=== PATIENT | female | born 1970 | race African-American/Black ===

== ENCOUNTER 2016-12-24 15:31 | Emergency (ER) | payer SELFPAY ==
--- NOTE | 2016-12-24 15:36 | ER Document Report ---
ED Medical Screen (RME) - General Stated Complaint: VOMITING Time seen by provider: 15:36 Mode of Arrival: Ambulatory Information source: Patient Notes: 46-year-old female with vomiting for 2 days she thinks it might be the Rifampin she started on Monday for a positive pedal PD skin test. She tried to go back to work today because she has been able to keep food down and does feel better but Swathi Smith wanted her to get a note for work. There is no diarrhea. She is a type II diabetic. Soreness in the epigastric area. TRAVEL OUTSIDE OF THE [place] IN LAST 30 DAYS: No - Related Data Allergies/Adverse Reactions: aspirin [Aspirin] Allergy (Verified 03/13/15 13:52) Shortness of Breath sulfamethoxazole [From Bactrim] Allergy (Verified 08/22/16 06:26) trimethoprim [From Bactrim] Allergy (Verified 08/22/16 06:26) Past Medical History - Past Medical History Cardiac Medical History: Reports: Hx Hypercholesterolemia, Hx Hypertension Pulmonary Medical History: Reports: Hx Asthma Endocrine Medical History: Reports: Hx Diabetes Mellitus Type 1, Hx Diabetes Mellitus Type 2 Psychiatric Medical History: Reports: Hx Depression Traumatic Medical History: Reports: Hx Fractures - LEFT TIBIAL PLATEAU FX TWO WEEKS AGO Past Surgical History: Reports: Hx Hysterectomy, Hx Oral Surgery - Pt has full dentures - Immunizations Hx Diphtheria, Pertussis, Tetanus Vaccination: Yes Physical Exam - Vital signs Vitals: Temp Pulse Resp BP Pulse Ox 98.6 F 106 H 16 138/76 H 96 12/24/16 15:36 12/24/16 15:36 12/24/16 15:36 12/24/16 15:36 12/24/16 15:36 Course - Vital Signs Vital signs: Temp Pulse Resp BP Pulse Ox 98.6 F 106 H 16 138/76 H 96 12/24/16 15:36 12/24/16 15:36 12/24/16 15:36 12/24/16 15:36 12/24/16 15:36
[2016-12-24 16:14] LABS: ABSOLUTE BASOPHILS # (AUTO) 0.1 10^3/uL (0.0-0.2); ABSOLUTE EOSINOPHILS # (AUTO) 0.1 10^3/uL (0.0-0.6); ABSOLUTE LYMPHOCYTES (AUTO) 2.3 10^3/uL (0.5-4.7); ABSOLUTE MONOCYTES (AUTO) 0.6 10^3/uL (0.1-1.4); ABSOLUTE NEUT (AUTO) 4.3 10^3/uL (1.7-8.2); BASOPHILS % (AUTO) 0.9 % (0-2); EOSINOPHILS % (AUTO) 1.3 % (0-6); HEMATOCRIT 41.7 % (36.0-47.0); HEMOGLOBIN 13.4 g/dL (12.0-15.5); HGB HCT DIFFERENCE -1.5; LYMPHOCYTES % (AUTO) 31.6 % (13-45); MEAN CORPUSCULAR HEMOGLOBIN 22.7 pg (27.0-33.4); MEAN CORPUSCULAR HGB CONC 32.1 g/dL (32.0-36.0); MEAN CORPUSCULAR VOLUME 71 fl (80-97); MONOCYTES % (AUTO) 8.4 % (3-13); RED CELL DISTRIBUTION WIDTH 14.6 % (11.5-14.0); SEGMENTED NEUTROPHILS % (AUTO) 57.8 % (42-78); WHITE BLOOD COUNT 7.4 10^3/uL (4.0-10.5)
[2016-12-24 16:17] LABS: APPEARANCE,URINE CLOUDY; BILIRUBIN,URINE SMALL (NEGATIVE); GLUCOSE, URINE >=500 mg/dL (NEGATIVE); KETONES,URINE TRACE mg/dL (NEGATIVE); LEUKOCYTE ESTERASE,URINE SMALL (NEGATIVE); NITRITE,URINE NEGATIVE (NEGATIVE); PROTEIN,URINE 100 mg/dL (NEGATIVE); URINE SPECIFIC GRAVITY 1.028
[2016-12-24 16:38] LABS: ALANINE AMINOTRANSFERASE 27 U/L (9-52); ALBUMIN 3.8 g/dL (3.5-5.0); ALKALINE PHOSPHATASE 140 U/L (38-126); ANION GAP 15 (5-19); ASPARTATE AMINO TRANSFERASE 17 U/L (14-36); BILIRUBIN,TOTAL 0.6 mg/dL (0.2-1.3); BLOOD UREA NITROGEN 13 mg/dL (7-20); CALCIUM 9.5 mg/dL (8.4-10.2); CARBON DIOXIDE 28 mmol/L (22-30); CHLORIDE 94 mmol/L (98-107); CREATININE RESULT 1.16 mg/dL (0.52-1.25); GLUCOSE 379 mg/dL (75-110); LIPASE 97.1 U/L (23-300); SODIUM 137.2 mmol/L (137-145); TOTAL PROTEIN 7.9 g/dL (6.3-8.2)
[2016-12-24] MEDS ORDERED: CEPHALEXIN 500 MG CAPSULE PO ONE (16:51)
--- NOTE | 2016-12-24 16:56 | ER Document Report ---
ED GI/ - General Mode of Arrival: Ambulatory Information source: Patient TRAVEL OUTSIDE OF THE [place] IN LAST 30 DAYS: No - HPI Patient complains to provider of: Abdominal pain, Vomiting Onset: Other - 2 days ago Associated symptoms: Other - see above <SUSANA WANG - Last Filed: 12/24/16 17:21> <JIN AUGUSTIN - Last Filed: 12/24/16 17:58> - General Chief Complaint: Vomiting Stated Complaint: VOMITING Notes: 46 year old female with history of diabetes presents to the ED complaining of nausea and vomiting for the past 2 days. Patient states that she had some mild abdominal pain earlier, but admits that all symptoms have gotten better since earlier this morning. Nursing assessment states that the patient vomited once this morning, proceeded to eat a meal, and has not had another episode of vomiting since. Patient denies diarrhea or fever. Patient is additionally complaining of mild dysuria, stating that the "last few drops" feels like "something is being pulled." Patient is currently on 500 mg Metformin BID ( taking as prescribed for the past 4 years) and was started on Rifampin 3 days ago. Patient does not have a primary care provider currently, but is looking for one. (SUSANA WANG) - Related Data Allergies/Adverse Reactions: aspirin [Aspirin] Allergy (Verified 03/13/15 13:52) Shortness of Breath sulfamethoxazole [From Bactrim] Allergy (Verified 08/22/16 06:26) trimethoprim [From Bactrim] Allergy (Verified 08/22/16 06:26) Past Medical History - General Information source: Patient - Social History Smoking Status: Current Every Day Smoker Cigarette use (# per day): Yes - 1 pack per 3 days Family History: CAD, CVA, DM - Past Medical History Cardiac Medical History: Reports: Hx Hypercholesterolemia, Hx Hypertension Pulmonary Medical History: Reports: Hx Asthma Endocrine Medical History: Reports: Hx Diabetes Mellitus Type 1, Hx Diabetes Mellitus Type 2 Renal/ Medical History: Denies: Hx Peritoneal Dialysis Psychiatric Medical History: Reports: Hx Depression Traumatic Medical History: Reports: Hx Fractures - LEFT TIBIAL PLATEAU FX in May 2014 Past Surgical History: Reports: Hx Hysterectomy, Hx Oral Surgery - Pt has full dentures - Immunizations Hx Diphtheria, Pertussis, Tetanus Vaccination: Yes Hx Pneumococcal Vaccination: 09/13/14 <SUSANA WANG - Last Filed: 12/24/16 17:21> Review of Systems - Review of Systems Constitutional: No symptoms reported EENT: No symptoms reported Cardiovascular: No symptoms reported Respiratory: No symptoms reported Gastrointestinal: See HPI, Abdominal pain, Nausea, Vomiting Genitourinary: See HPI, Dysuria Female Genitourinary: No symptoms reported Musculoskeletal: No symptoms reported Skin: No symptoms reported Hematologic/Lymphatic: No symptoms reported Neurological/Psychological: No symptoms reported -: Yes All other systems reviewed and negative <SUSANA WANG - Last Filed: 12/24/16 17:21> Physical Exam - General General appearance: Alert In distress: None - HEENT Head: Normocephalic, Atraumatic Eyes: Normal Extraocular movements intact: Yes Pupils: PERRL - Respiratory Respiratory status: No respiratory distress Breath sounds: Normal - Cardiovascular Rhythm: Regular Heart sounds: Normal auscultation - Abdominal Inspection: Normal Distension: No distension Bowel sounds: Normal Tenderness: Nontender - Back Back: Normal - Extremities General upper extremity: Normal inspection, Normal ROM General lower extremity: Normal inspection, Normal ROM - Neurological Neuro grossly intact: Yes - Psychological Associated symptoms: Normal affect, Normal mood - Skin Skin Temperature: Warm Skin Moisture: Dry Skin Color: Normal <SUSANA WANG - Last Filed: 12/24/16 17:21> <JIN AUGUSTIN - Last Filed: 12/24/16 17:58> - Vital signs Vitals: Temp Pulse Resp BP Pulse Ox 98.6 F 106 H 16 138/76 H 96 12/24/16 15:36 12/24/16 15:36 12/24/16 15:36 12/24/16 15:36 12/24/16 15:36 (SUSANA WANG) (JIN AUGUSTIN) Course - Laboratory Result Diagrams: 12/24/16 15:45 12/24/16 15:45 <SUSANA WANG - Last Filed: 12/24/16 17:21> - Laboratory Result Diagrams: 12/24/16 15:45 12/24/16 15:45 <JIN AUGUSTIN - Last Filed: 12/24/16 17:58> - Vital Signs Vital signs: Temp Pulse Resp BP Pulse Ox 98.6 F 106 H 16 138/76 H 96 12/24/16 15:37 12/24/16 15:37 12/24/16 15:37 12/24/16 15:37 12/24/16 15:37 (SUSANA WANG) (JIN AUGUSTIN) - Laboratory Laboratory results interpreted by me: 12/24/16 12/24/16 12/24/16 15:45 15:45 15:45 RBC 5.90 H MCV 71 L MCH 22.7 L RDW 14.6 H Chloride 94 L Est GFR (Non-Af Amer) 50 L Glucose 379 H Hemoglobin A1c % Alkaline Phosphatase 140 H Urine Protein 100 H Urine Glucose (UA) >=500 H Urine Ketones TRACE H Urine Bilirubin SMALL H Urine Urobilinogen 2.0 H Ur Leukocyte Esterase SMALL H 12/24/16 15:45 RBC MCV MCH RDW Chloride Est GFR (Non-Af Amer) Glucose Hemoglobin A1c % 11.4 H Alkaline Phosphatase Urine Protein Urine Glucose (UA) Urine Ketones Urine Bilirubin Urine Urobilinogen Ur Leukocyte Esterase (SUSANA WANG) (JIN AUGUSTIN) Discharge <SUSANA WANG - Last Filed: 12/24/16 17:21> <JIN AUGUSTIN - Last Filed: 12/24/16 17:58> - Discharge Clinical Impression: Hyperglycemia due to type 2 diabetes mellitus Qualifiers: Diabetes mellitus half-way insulin use: without long term acute care registered nurse use Qualified Code(s ): E11.65 - Type 2 diabetes mellitus with hyperglycemia Urinary tract infection Qualifiers: Urinary tract infection type: site unspecified Hematuria presence: with hematuria Qualified Code(s): N39.0 - Urinary tract infection, site not specified ; R31.9 - Hematuria, unspecified Nausea and vomiting Qualifiers: Vomiting type: unspecified Vomiting Intractability: non-intractable Qualified Code(s): R11.2 - Nausea with vomiting, unspecified Condition: Stable Disposition: HOME, SELF-CARE Additional Instructions: Hyperglycemia (High Blood Sugar): You have an abnormally high blood sugar. It's very important that you take the medication and to follow-up with a local medical doctor, to see if the blood sugar returns to normal levels. Uncontrolled high blood sugar leads to early heart disease, strokes, nerve damage, eye damage, and kidney damage. Call the physician if there is faintness, excess sleepiness, or very rapid breathing. Urinary Tract Infection: Your evaluation indicates that you have a urinary tract infection. This is due to germs growing in the bladder. This is a common problem. This infection usually responds quickly to antibiotics. Your antibiotic should be taken exactly as prescribed. Drink plenty of fluids -- three to four quarts a day. Occasionally, a bladder anesthetic will be prescribed to help stop the feeling of urgency until the antibiotic has a chance to clear the infection. This may cause your urine to be dark orange. Certain urine infections require a culture. If the doctor obtained a culture, the results will be back in two days. You should call to see if a change in treatment is needed. A repeat urinalysis after you finish treatment is often recommended. The physician will let you know if further testing is required. Call the doctor if you develop fever, chills, flank pain, inability to urinate, or blood in the urine. TAKE THE MEDICATIONS PRESCRIBED. DRINK PLENTY OF WATER TODAY. CHECK YOUR BLOOD SUGARS. FOLLOW UP WITH A LOCAL MEDICAL DOCTOR TO MANAGE YOUR DIABETES. RETURN TO THE EMERGENCY ROOM IF ANY NEW OR WORSENING SYMPTOMS. Prescriptions: Cephalexin Monohydrate [Keflex 500 mg Capsule] 500 mg PO BID #10 capsule Glipizide [Glucotrol 5 mg Tablet] 5 mg PO DAILY #30 tablet Forms: Return to Work Scribe Attestation: 12/24/16 17:58 I personally performed the services described in the documentation, reviewed and edited the documentation which was dictated to the scribe in my presence, and it accurately records my words and actions. (JIN AUGUSTIN) Scribe Documentation - Scribe Written by Keli:: Keli Raymundo, 12/24/2016 [id number] acting as scribe for :: Vidal <SUSANA WANG - Last Filed: 12/24/16 17:21>
[2016-12-24 18:09] VITALS: BP 146/93
== END 2016-12-24 18:09 | disposition home or self-care (01) ==
LOC: ER 15:31
DX: E11.65 Type 2 diabetes mellitus with hyperglycemia (principal); N39.0 Urinary tract infection, site not specified; R11.2 Nausea with vomiting, unspecified; R10.9 Unspecified abdominal pain; F17.210 Nicotine dependence, cigarettes, uncomplicated; I10 Essential (primary) hypertension; E78.00 Pure hypercholesterolemia, unspecified; Z88.6 Allergy status to analgesic agent; Z88.3 Allergy status to other anti-infective agents; Z90.710 Acquired absence of both cervix and uterus
CPT/HCPCS: 36415; 80053; 81001; 83036; 83690; 85025; 87086; 99284

== ENCOUNTER → 2017-07-11 | Outpatient (CLI) | payer OTHER ==
[2017-07-11 11:26] LABS: ALANINE AMINOTRANSFERASE 23 U/L (9-52); ALBUMIN 4.2 g/dL (3.5-5.0); ALKALINE PHOSPHATASE 127 U/L (38-126); ANION GAP 9 (5-19); ASPARTATE AMINO TRANSFERASE 19 U/L (14-36); BILIRUBIN,DIRECT 0.4 mg/dL (0.0-0.4); BILIRUBIN,TOTAL 0.4 mg/dL (0.2-1.3); BLOOD UREA NITROGEN 23 mg/dL (7-20); CALCIUM 9.9 mg/dL (8.4-10.2); CARBON DIOXIDE 28 mmol/L (22-30); CHLORIDE 104 mmol/L (98-107); CHOLESTEROL 201.19 mg/dL (0-200); CREATININE RESULT 0.94 mg/dL (0.52-1.25); Direct HDL 84 mg/dL (>40); GLUCOSE 146 mg/dL (75-110); POTASSIUM 5.1 mmol/L (3.6-5.0); SODIUM 141.3 mmol/L (137-145); TOTAL PROTEIN 7.9 g/dL (6.3-8.2); TRIGLYCERIDES 97 mg/dL (<150)
[2017-07-11 11:42] LABS: DIRECT LDL 103 mg/dL (<100)
== END ==
LOC: CCC 09:58
DX: E11.65 Type 2 diabetes mellitus with hyperglycemia (principal)
CPT/HCPCS: 36415; 80053; 80061; 83036; 85652; 86140

== ENCOUNTER 2018-09-27 16:23 | Emergency (ER) | payer SELFPAY ==
[2018-09-27] MEDS ORDERED: ONDANSETRON HCL INJ/PF 4 MG/2 ML SDV IV ONE (17:31)
[2018-09-27] MEDS ORDERED: NORMAL SALINE 1000 ML 1,000 ML IV ONE ×2 (17:31→21:02)
--- NOTE | 2018-09-27 17:34 | ER Document Report ---
ED Medical Screen (RME) - General Chief Complaint: General Weakness Stated Complaint: WEAKNESS/VOMITING Time Seen by Provider: 09/27/18 17:31 Notes: 48 years old female history of diabetes hypertension smoking, presents today with with generalized body aches and pain feverish nausea vomited many times. No diarrhea. No dysuria frequency or urgency. Coughing on and off but she is a smoker she says. Examination appears weak and dehydrated TRAVEL OUTSIDE OF THE [place] IN LAST 30 DAYS: No - Related Data Allergies/Adverse Reactions: aspirin [Aspirin] Allergy (Verified 09/27/18 16:25) Shortness of Breath sulfamethoxazole [From Bactrim] Allergy (Verified 09/27/18 16:25) trimethoprim [From Bactrim] Allergy (Verified 09/27/18 16:25) Past Medical History - Social History Chew tobacco use (# tins/day): No Frequency of alcohol use: Heavy Drug Abuse: None - Past Medical History Cardiac Medical History: Reports: Hx Hypercholesterolemia, Hx Hypertension Pulmonary Medical History: Reports: Hx Asthma Endocrine Medical History: Reports: Hx Diabetes Mellitus Type 1, Hx Diabetes Mellitus Type 2 Renal/ Medical History: Denies: Hx Peritoneal Dialysis Psychiatric Medical History: Reports: Hx Depression Traumatic Medical History: Reports: Hx Fractures - LEFT TIBIAL PLATEAU FX in May 2014 Past Surgical History: Reports: Hx Hysterectomy, Hx Oral Surgery - Pt has full dentures - Immunizations Hx Diphtheria, Pertussis, Tetanus Vaccination: Yes Physical Exam - Vital signs Vitals: Temp Pulse Resp BP Pulse Ox 99.0 F 112 H 20 150/93 H 93 09/27/18 16:57 09/27/18 16:57 09/27/18 16:57 09/27/18 16:57 09/27/18 16:57 Course - Vital Signs Vital signs: Temp Pulse Resp BP Pulse Ox 99.0 F 112 H 20 150/93 H 93 09/27/18 16:57 09/27/18 16:57 09/27/18 16:57 09/27/18 16:57 09/27/18 16:57 Doctor's Discharge - Discharge Referrals: [facility] [Primary Care Provider] - Follow up as needed
--- NOTE | 2018-09-27 18:19 | RADIOLOGY REPORT (SQ) ---
EXAM DESCRIPTION: ACUTE ABDOMEN SERIES COMPLETED DATE/TIME: 09/27/2018 6:01 pm REASON FOR STUDY: Acute abdominal pain COMPARISON: None. NUMBER OF VIEWS: One view. TECHNIQUE: Supine radiographic image of the abdomen acquired. LIMITATIONS: None. FINDINGS: BOWEL GAS PATTERN: Non-obstructive bowel gas pattern. No dilated loops. CALCIFICATIONS: No suspicious calcifications. SOFT TISSUES: No gross mass or suggestion of organomegaly. HARDWARE: None in the abdomen. BONES: No acute fracture. No worrisome bone lesions. OTHER: No other significant finding. IMPRESSION: NO RADIOGRAPHIC EVIDENCE FOR ACUTE ABDOMINAL DISEASE. TECHNICAL DOCUMENTATION: JOB ID: [id number] 2010 [employer]- All Rights Reserved Reading location - IP/workstation name: [email or web address]
[2018-09-27 18:35] LABS: ABSOLUTE BASOPHILS # (AUTO) 0.1 10^3/uL (0.0-0.2); ABSOLUTE EOSINOPHILS # (AUTO) 0.1 10^3/uL (0.0-0.6); ABSOLUTE LYMPHOCYTES (AUTO) 1.3 10^3/uL (0.5-4.7); ABSOLUTE MONOCYTES (AUTO) 0.8 10^3/uL (0.1-1.4); ABSOLUTE NEUT (AUTO) 6.2 10^3/uL (1.7-8.2); BASOPHILS % (AUTO) 0.8 % (0-2); EOSINOPHILS % (AUTO) 0.6 % (0-6); HEMATOCRIT 44.2 % (36.0-47.0); HEMOGLOBIN 14.4 g/dL (12.0-15.5); MEAN CORPUSCULAR HEMOGLOBIN 23.7 pg (27.0-33.4); MEAN CORPUSCULAR HGB CONC 32.7 g/dL (32.0-36.0); MEAN CORPUSCULAR VOLUME 73 fl (80-97); MONOCYTES % (AUTO) 9.6 % (3-13); PLATELET COUNT 275 10^3/uL (150-450); RED BLOOD COUNT 6.09 10^6/uL (3.72-5.28); RED CELL DISTRIBUTION WIDTH 14.2 % (11.5-14.0); TOTAL CELLS COUNTED % (AUTO) 100 %; WHITE BLOOD COUNT 8.4 10^3/uL (4.0-10.5)
--- NOTE | 2018-09-27 18:51 | ER Document Report ---
ED General - General Chief Complaint: General Weakness Stated Complaint: WEAKNESS/VOMITING Time Seen by Provider: 09/27/18 17:31 Mode of Arrival: Ambulatory Information source: Patient Notes: 48-year-old female with a history of diabetes, hypertension presents emergency department with generalized weakness, myalgias, nausea, vomiting, dysuria, increased urgency, increased frequency. No abdominal pain, chest pain, shortness of breath, fever, chills. Patient denies any alleviating or exacerbating factors. TRAVEL OUTSIDE OF THE [place] IN LAST 30 DAYS: No - HPI Onset: Yesterday Onset/Duration: Gradual Quality of pain: Achy Severity: Mild Associated symptoms: Diarrhea, Nausea, Vomiting Exacerbated by: Denies Relieved by: Denies Similar symptoms previously: No Recently seen / treated by doctor: No - Related Data Allergies/Adverse Reactions: aspirin [Aspirin] Allergy (Verified 09/27/18 16:25) Shortness of Breath sulfamethoxazole [From Bactrim] Allergy (Verified 09/27/18 16:25) trimethoprim [From Bactrim] Allergy (Verified 09/27/18 16:25) Past Medical History - General Information source: Patient - Social History Smoking Status: Current Every Day Smoker Chew tobacco use (# tins/day): No Frequency of alcohol use: Heavy Drug Abuse: None Family History: CAD, CVA, DM Patient has suicidal ideation: No Patient has homicidal ideation: No - Past Medical History Cardiac Medical History: Reports: Hx Hypercholesterolemia, Hx Hypertension Pulmonary Medical History: Reports: Hx Asthma Endocrine Medical History: Reports: Hx Diabetes Mellitus Type 1, Hx Diabetes Mellitus Type 2 Renal/ Medical History: Denies: Hx Peritoneal Dialysis Psychiatric Medical History: Reports: Hx Depression Traumatic Medical History: Reports: Hx Fractures - LEFT TIBIAL PLATEAU FX in May 2014 Past Surgical History: Reports: Hx Hysterectomy, Hx Oral Surgery - Pt has full dentures - Immunizations Hx Diphtheria, Pertussis, Tetanus Vaccination: Yes Hx Pneumococcal Vaccination: 09/13/14 Review of Systems - Review of Systems Constitutional: Malaise, Weakness EENT: No symptoms reported Cardiovascular: No symptoms reported Respiratory: No symptoms reported Gastrointestinal: Diarrhea, Nausea, Vomiting Genitourinary: Dysuria, Frequency, Urgency Female Genitourinary: No symptoms reported Musculoskeletal: No symptoms reported Skin: No symptoms reported Hematologic/Lymphatic: No symptoms reported Neurological/Psychological: No symptoms reported -: Yes All other systems reviewed and negative Physical Exam - Vital signs Vitals: Temp Pulse Resp BP Pulse Ox 99.0 F 112 H 20 150/93 H 93 09/27/18 16:57 09/27/18 16:57 09/27/18 16:57 09/27/18 16:57 09/27/18 16:57 - Notes Notes: PHYSICAL EXAMINATION: GENERAL: Well-appearing, well-nourished and in no acute distress. HEAD: Atraumatic, normocephalic. EYES: Pupils equal round and reactive to light, extraocular movements intact, conjunctiva are normal. ENT: Nares patent, oropharynx clear without exudates. Moist mucous membranes. NECK: Normal range of motion, supple without lymphadenopathy LUNGS: Breath sounds clear to auscultation bilaterally and equal. No wheezes rales or rhonchi. HEART: Regular rate and rhythm without murmurs ABDOMEN: Soft, nontender, nondistended abdomen. No guarding, no rebound. No masses appreciated. Female : deferred Musculoskeletal: Normal range of motion, no pitting or edema. No cyanosis. NEUROLOGICAL: Cranial nerves grossly intact. Normal speech, normal gait. Normal sensory, motor exams PSYCH: Normal mood, normal affect. SKIN: Warm, Dry, normal turgor, no rashes or lesions noted. Course - Re-evaluation Re-evalutation: 09/27/18 22:38 Labs and imaging ordered. Patient given fluids, morphine, Zofran. Urinalysis shows signs of infection. XR abd/pel is normal. Patient was given a gram of Rocephin. Abdominal exam is benign. No abdominal tenderness to palpation. Normal active bowel sounds. On reevaluation, patient states that she is feeling much better. Patient is agreeable with discharge home. I will discharge the patient with a prescription for levofloxacin, zofran, and norco. Patient instructed to follow up with her primary care physician this week, to take medication as directed, and to return for worsening symptoms. - Vital Signs Vital signs: Temp Pulse Resp BP Pulse Ox 98.7 F 112 H 19 143/124 H 93 09/27/18 20:11 09/27/18 16:57 09/27/18 20:31 09/27/18 20:31 09/27/18 20:31 - Laboratory Result Diagrams: 09/27/18 18:20 09/27/18 19:55 Laboratory results interpreted by me: 09/27/18 09/27/18 09/27/18 18:20 19:00 19:55 RBC 6.09 H MCV 73 L MCH 23.7 L RDW 14.2 H Glucose 256 H AST 13 L Alkaline Phosphatase 150 H Lipase 513.6 H Urine Protein 100 H Urine Glucose (UA) >=500 H Urine Ketones 20 H Urine Blood LARGE H Ur Leukocyte Esterase LARGE H Discharge - Discharge Clinical Impression: Urinary tract infection Qualifiers: Urinary tract infection type: site unspecified Hematuria presence: without hematuria Qualified Code(s): N39.0 - Urinary tract infection, site not specified Condition: Good Disposition: HOME, SELF-CARE Instructions: Urinary Tract Infection ([facility]) Prescriptions: Hydrocodone/Acetaminophen [[place]co 5-325 mg Tablet] 1 tab PO Q4 #10 tablet Levofloxacin [Levaquin 750 mg Tablet] 750 mg PO DAILY #5 tablet Promethazine HCl [Phenergan 25 mg Tablet] 1 tab PO Q6H PRN #15 tablet PRN Reason: Referrals: [facility] [Primary Care Provider] - Follow up as needed
[2018-09-27 19:26] LABS: APPEARANCE,URINE TURBID; BILIRUBIN,URINE NEGATIVE (NEGATIVE); COLOR,URINE YELLOW; GLUCOSE, URINE >=500 mg/dL (NEGATIVE); KETONES,URINE 20 mg/dL (NEGATIVE); LEUKOCYTE ESTERASE,URINE LARGE (NEGATIVE); NITRITE,URINE NEGATIVE (NEGATIVE); PROTEIN,URINE 100 mg/dL (NEGATIVE); URINE SPECIFIC GRAVITY 1.013; UROBILINOGEN,URINE NEGATIVE mg/dL (<2.0)
[2018-09-27] MEDS ORDERED: CEFTRIAXONE INJ 1000 MG VIAL IV ONE (19:51)
[2018-09-27] MEDS ORDERED: PROMETHAZINE HCL INJ 25 MG/1 ML VIAL IV ONE (20:23)
[2018-09-27 20:33] LABS: ALANINE AMINOTRANSFERASE 15 U/L (9-52); ALBUMIN 3.9 g/dL (3.5-5.0); ALKALINE PHOSPHATASE 150 U/L (38-126); ANION GAP 13 (5-19); ASPARTATE AMINO TRANSFERASE 13 U/L (14-36); BILIRUBIN,DIRECT 0.4 mg/dL (0.0-0.4); BILIRUBIN,TOTAL 0.5 mg/dL (0.2-1.3); BLOOD UREA NITROGEN 17 mg/dL (7-20); CALCIUM 9.3 mg/dL (8.4-10.2); CARBON DIOXIDE 29 mmol/L (22-30); CHLORIDE 99 mmol/L (98-107); GLUCOSE 256 mg/dL (75-110); LIPASE 513.6 U/L (23-300); POTASSIUM 4.6 mmol/L (3.6-5.0); SODIUM 141.2 mmol/L (137-145); TOTAL PROTEIN 7.8 g/dL (6.3-8.2)
[2018-09-27] MEDS ORDERED: MORPHINE SULFATE 10 MG/ML INJ IV ONE (21:02)
[2018-09-27 23:55] VITALS: BP 171/83
== END 2018-09-27 23:55 | disposition home or self-care (01) ==
LOC: ER 16:23
DX: N39.0 Urinary tract infection, site not specified (principal); R53.1 Weakness; R11.2 Nausea with vomiting, unspecified; R19.7 Diarrhea, unspecified; M79.10 Myalgia, unspecified site; F17.200 Nicotine dependence, unspecified, uncomplicated; E78.00 Pure hypercholesterolemia, unspecified; I10 Essential (primary) hypertension; E11.9 Type 2 diabetes mellitus without complications; Z88.6 Allergy status to analgesic agent; Z88.3 Allergy status to other anti-infective agents; Z90.710 Acquired absence of both cervix and uterus
CPT/HCPCS: 36415; 87040; 87086; 83690; 85025; 87088; 80053; 81001; 87186; 74022; J2270; J2550; J0696; J2405; J7030; 96361; 96365; 96375; 99285

== ENCOUNTER 2018-09-28 05:12 | Emergency (ER) | payer SELFPAY ==
--- NOTE | 2018-09-28 05:31 | ER Document Report ---
ED Medical Screen (RME) - General Chief Complaint: Dizziness Stated Complaint: NAUSEA,DIZZINESS Time Seen by Provider: 09/28/18 05:29 Notes: Patient is evaluated as a rapid medical eval. She was just discharged after being seen for myalgias and hypertension, was diagnosed with UTI and discharged with antibiotics after receiving IV antibiotics. Her labs were normal. She states she still feels "bad" and complains of generalized weakness myalgias headaches nausea abdominal pain but denies focal weakness numbness tingling. I was contacted by nursing to rule out acute stroke because they thought she had a facial droop. I examined the patient. She is in mild distress and appears very weak, but responds to my commands and sits up straight to do the neuro exam. Initially when I asked her to smile her right face looks like it is not coming up all the way but when she makes a full effort, there is no delayed upstroke, flattened nasolabial fold or any facial asymmetry at all. The remainder of her cranial nerve exam is normal. She has no pronator drift. Nursing tells me that her pressure is quite high. We will plug her in, get basic labs, and go from there. TRAVEL OUTSIDE OF THE [place] IN LAST 30 DAYS: No - Related Data Allergies/Adverse Reactions: aspirin [Aspirin] Allergy (Verified 09/27/18 16:25) Shortness of Breath sulfamethoxazole [From Bactrim] Allergy (Verified 09/27/18 16:25) trimethoprim [From Bactrim] Allergy (Verified 09/27/18 16:25) Past Medical History - Past Medical History Cardiac Medical History: Reports: Hx Hypercholesterolemia, Hx Hypertension Pulmonary Medical History: Reports: Hx Asthma Endocrine Medical History: Reports: Hx Diabetes Mellitus Type 1, Hx Diabetes Mellitus Type 2 Renal/ Medical History: Denies: Hx Peritoneal Dialysis Psychiatric Medical History: Reports: Hx Depression Traumatic Medical History: Reports: Hx Fractures - LEFT TIBIAL PLATEAU FX in May 2014 Past Surgical History: Reports: Hx Hysterectomy, Hx Oral Surgery - Pt has full dentures - Immunizations Hx Diphtheria, Pertussis, Tetanus Vaccination: Yes Physical Exam - Vital signs Vitals: Temp Pulse Resp BP 98.6 F 101 H 20 201/111 H 09/28/18 05:17 09/28/18 05:17 09/28/18 05:17 09/28/18 05:17 Course - Vital Signs Vital signs: Temp Pulse Resp BP Pulse Ox 98.6 F 101 H 20 201/111 H 09/28/18 05:17 09/28/18 05:17 09/28/18 05:17 09/28/18 05:17 Doctor's Discharge - Discharge Referrals: [facility] [Primary Care Provider] - Follow up as needed
[2018-09-28 05:53] LABS: ABSOLUTE BASOPHILS # (AUTO) 0.1 10^3/uL (0.0-0.2); ABSOLUTE MONOCYTES (AUTO) 0.4 10^3/uL (0.1-1.4); ABSOLUTE NEUT (AUTO) 7.6 10^3/uL (1.7-8.2); BASOPHILS % (AUTO) 0.9 % (0-2); EOSINOPHILS % (AUTO) 0.1 % (0-6); HEMATOCRIT 42.1 % (36.0-47.0); HEMOGLOBIN 13.9 g/dL (12.0-15.5); LYMPHOCYTES % (AUTO) 10.7 % (13-45); MEAN CORPUSCULAR HEMOGLOBIN 23.6 pg (27.0-33.4); MEAN CORPUSCULAR HGB CONC 32.9 g/dL (32.0-36.0); MEAN CORPUSCULAR VOLUME 72 fl (80-97); MONOCYTES % (AUTO) 4.7 % (3-13); PLATELET COUNT 303 10^3/uL (150-450); RED BLOOD COUNT 5.87 10^6/uL (3.72-5.28); RED CELL DISTRIBUTION WIDTH 14.3 % (11.5-14.0); SEGMENTED NEUTROPHILS % (AUTO) 83.6 % (42-78); TOTAL CELLS COUNTED % (AUTO) 100 %; WHITE BLOOD COUNT 9.1 10^3/uL (4.0-10.5)
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
[2018-09-28] MEDS: NICARDIPINE HCL RTU, ISO-OS 20 MG/200 ML RTUINJ IV PRN ×2 (05:57→08:53)
[2018-09-28 06:04] LABS: ANION GAP 16 (5-19); BLOOD UREA NITROGEN 16 mg/dL (7-20); CALCIUM 9.6 mg/dL (8.4-10.2); CARBON DIOXIDE 26 mmol/L (22-30); CHLORIDE 100 mmol/L (98-107); GLUCOSE 268 mg/dL (75-110); POTASSIUM 4.5 mmol/L (3.6-5.0); SODIUM 141.6 mmol/L (137-145)
--- NOTE | 2018-09-28 06:15 | RADIOLOGY REPORT (SQ) ---
EXAM DESCRIPTION: CT HEAD WITHOUT IV CONTRAST COMPLETED DATE/TME: 09/28/2018 05:56 CLINICAL HISTORY: 48 years, Female, HTN, R FD COMPARISON: Prior CT 08/22/2016. TECHNIQUE: 190 Images stored on PACS. All CT scanners at this facility use dose modulation, iterative reconstruction, and/or weight based dosing when appropriate to reduce radiation dose to as low as reasonably achievable (ALARA). [facility]: Dose Right [facility]: CareDose [facility]: Dose Right [facility]: Teradose 4D [facility]: [employer] LIMITATIONS: None. FINDINGS: The globes are intact. The paranasal sinuses and mastoid air cells are unremarkable. No displaced or depressed skull fracture. No intra or extra-axial hemorrhage. CT is limited for evaluation of acute infarct. No CT evidence for large or territorial acute infarct. No mass or midline shift. IMPRESSION: Negative exam TECHNICAL DOCUMENTATION: Quality ID # [id number]: Final reports with documentation of one or more dose reduction techniques (e.g., Automated exposure control, adjustment of the mA and/or kV according to patient size, use of iterative reconstruction technique) 2010 [employer]- All Rights Reserved
[2018-09-28] MEDS ORDERED: ONDANSETRON HCL INJ/PF 4 MG/2 ML SDV IV ONE (06:27)
[2018-09-28] MEDS ORDERED: NORMAL SALINE 1000 ML 1,000 ML IV ONE (06:46)
[2018-09-28 08:56] VITALS: BP 150/88
--- NOTE | 2018-10-02 15:49 | EKG REPORT ---
SEVERITY:- ABNORMAL ECG - SINUS TACHYCARDIA PROBABLE LVH WITH SECONDARY REPOL ABNRM : Confirmed by: Brittany García MD 02-Oct-2018 15:48:42
== END 2018-09-28 09:00 | disposition short-term general hospital (02) ==
LOC: ER 05:12
DX: I16.1 Hypertensive emergency (principal); I11.9 Hypertensive heart disease without heart failure; F14.10 Cocaine abuse, uncomplicated; R53.81 Other malaise; R51 Headache; R53.1 Weakness; R10.9 Unspecified abdominal pain; R11.0 Nausea; R42 Dizziness and giddiness; F17.200 Nicotine dependence, unspecified, uncomplicated; E11.9 Type 2 diabetes mellitus without complications; Z86.73 Personal history of transient ischemic attack (TIA), and cerebral infarction without residual deficits; Z87.440 Personal history of urinary (tract) infections; Z88.6 Allergy status to analgesic agent; Z88.1 Allergy status to other antibiotic agents; R00.0 Tachycardia, unspecified
CPT/HCPCS: 99291; 96374; 96375; 36415; 82962; 85025; 80048; 70450; J2405; J7030; J3490; 93005; 93010

== ENCOUNTER → 2018-12-20 | Outpatient (CLI) | payer OTHER ==
[2018-12-20 15:36] LABS: HEMATOCRIT 40.8 % (36.0-47.0); HEMOGLOBIN 13.2 g/dL (12.0-15.5); MEAN CORPUSCULAR HEMOGLOBIN 23.5 pg (27.0-33.4); MEAN CORPUSCULAR HGB CONC 32.3 g/dL (32.0-36.0); MEAN CORPUSCULAR VOLUME 73 fl (80-97); RED CELL DISTRIBUTION WIDTH 14.9 % (11.5-14.0); WHITE BLOOD COUNT 4.6 10^3/uL (4.0-10.5)
[2018-12-20 15:55] LABS: ALANINE AMINOTRANSFERASE 11 U/L (9-52); ALBUMIN 4.1 g/dL (3.5-5.0); ALKALINE PHOSPHATASE 123 U/L (38-126); ANION GAP 8 (5-19); ASPARTATE AMINO TRANSFERASE 16 U/L (14-36); BILIRUBIN,DIRECT 0.3 mg/dL (0.0-0.4); BILIRUBIN,TOTAL 0.4 mg/dL (0.2-1.3); BLOOD UREA NITROGEN 18 mg/dL (7-20); CALCIUM 9.4 mg/dL (8.4-10.2); CARBON DIOXIDE 30 mmol/L (22-30); CHLORIDE 102 mmol/L (98-107); CHOLESTEROL 215.78 mg/dL (0-200); GLUCOSE 163 mg/dL (75-110); POTASSIUM 4.7 mmol/L (3.6-5.0); SODIUM 140.3 mmol/L (137-145); TOTAL PROTEIN 7.6 g/dL (6.3-8.2); TRIGLYCERIDES 116 mg/dL (<150)
[2018-12-20 16:06] LABS: DIRECT LDL 112 mg/dL (<100)
[2018-12-20 16:50] LABS: ABSOLUTE LYMPHOCYTES# (MANUAL) 2.2 10^3/uL (0.5-4.7); ABSOLUTE MONOCYTES # (MANUAL) 0.4 10^3/uL (0.1-1.4); ABSOLUTE NEUTROPHILS# (MANUAL) 1.9 10^3/uL (1.7-8.2); BASOPHILS % (MANUAL) 1 % (0-2); EOSINOPHILS % (MANUAL) 0 % (0-6); LYMPHOCYTES % (MANUAL) 48 % (13-45); MONOCYTES % (MANUAL) 9 % (3-13); SEGMENTED NEUTROPHILS % (MAN) 42 % (42-78); TOTAL CELLS COUNTED 100
[2018-12-20 16:53] LABS: ANISOCYTOSIS SLIGHT; HYPOCHROMASIA 1+; POLYCHROMASIA 1+
[2018-12-20 16:54] LABS: PLATELET CLUMPS PRESENT; PLATELET COUNT 271 10^3/uL (150-450); TARGET CELLS 2+
[2018-12-20 16:59] LABS: PLATELET COMMENT ADEQUATE
== END ==
LOC: CCC 14:40
DX: I10 Essential (primary) hypertension (principal)
CPT/HCPCS: 36415; 80053; 80061; 83036; 84443; 85025

== ENCOUNTER 2019-03-30 00:56 | Emergency (ER) | payer SELFPAY ==
[2019-03-30] MEDS ORDERED: ALBUTEROL SULFATE 0.083% NEB 2.5 MG/3 ML AMPUL NEB ONE (01:19)
--- NOTE | 2019-03-30 01:25 | ER Document Report ---
ED General - General Chief Complaint: Breathing Difficulty Stated Complaint: DIFFICULTY BREATHING Time Seen by Provider: 03/30/19 01:17 Primary Care Provider: [facility] [Primary Care Provider] - Follow up as needed Notes: Patient is a 49-year-old female presents with complaint of difficulty breathing and wheezing for 2 weeks. Patient does have history of asthma and is a smoker. She says she is out of her inhaler. She denies any chest pain. No fevers. No vomiting. She has had increased coughing. No other complaints at this time. TRAVEL OUTSIDE OF THE [place] IN LAST 30 DAYS: No - Related Data Allergies/Adverse Reactions: aspirin [Aspirin] Allergy (Verified 09/27/18 16:25) Shortness of Breath sulfamethoxazole [From Bactrim] Allergy (Verified 09/27/18 16:25) trimethoprim [From Bactrim] Allergy (Verified 09/27/18 16:25) Past Medical History - Social History Smoking Status: Current Every Day Smoker Frequency of alcohol use: None Drug Abuse: None Family History: CAD, CVA, DM - Past Medical History Cardiac Medical History: Reports: Hx Hypercholesterolemia, Hx Hypertension Pulmonary Medical History: Reports: Hx Asthma Endocrine Medical History: Reports: Hx Diabetes Mellitus Type 1, Hx Diabetes Mellitus Type 2 Renal/ Medical History: Denies: Hx Peritoneal Dialysis Psychiatric Medical History: Reports: Hx Depression Traumatic Medical History: Reports: Hx Fractures - LEFT TIBIAL PLATEAU FX in May 2014 Past Surgical History: Reports: Hx Hysterectomy, Hx Oral Surgery - Pt has full dentures - Immunizations Hx Diphtheria, Pertussis, Tetanus Vaccination: Yes Hx Pneumococcal Vaccination: 09/13/14 Review of Systems - Review of Systems Notes: My Normal Review Basic REVIEW OF SYSTEMS: CONSTITUTIONAL : Denies fever, chills, or sweats. Denies recent illness. EENT: Denies eye, ear, throat, or mouth pain or symptoms. Denies nasal or sinus congestion. CARDIOVASCULAR: Denies chest pain. RESPIRATORY: Cough. Wheezing, dyspnea. GASTROINTESTINAL: Denies abdominal pain. Denies nausea, vomiting, or diarrhea. GENITOURINARY: Denies difficulty urinating, painful urination, burning, frequency, or blood in urine. SKIN: Denies rash or skin lesions. NEUROLOGICAL: Denies altered mental status or loss of consciousness. Denies headache. Denies weakness or paralysis or loss of use of either side. Denies problems with gait or speech. Denies sensory or motor loss. ALL OTHER SYSTEMS REVIEWED AND NEGATIVE. Physical Exam - Vital signs Vitals: Temp Pulse Resp BP Pulse Ox 98.2 F 90 22 H 154/101 H 95 03/30/19 00:57 03/30/19 00:57 03/30/19 00:57 03/30/19 00:57 03/30/19 00:57 - Notes Notes: General Appearance: Well nourished, alert, cooperative, no acute distress, no obvious discomfort. Well-appearing. Vitals: reviewed, See vital signs table. Eyes: PERRL, EOMI, Conjuctiva clear Mouth: No decreasd moisture Lungs: Wheezing. Some decreased air movement. Heart: Normal rate, Regular rythm, No murmur, no rub Skin: warm, dry, appropriate color Neuro: speech clear, oriented x 3, normal affect, responds appropriately to questions. Course - Re-evaluation Re-evalutation: 03/30/19 03:19 After initial breathing treatment patient is feeling slightly better. I then gave her a DuoNeb treatment now she feels much improved. Wheezing is completely resolved now. She looks well. I feel she is safe to be discharged home. I encouraged her return to ER immediately if she has worsening wheezing, difficulty breathing, fevers, or if she feels unwell. Patient agrees with plan and will be discharged home. Dictation of this chart was performed using voice recognition software; therefore, there may be some unintended grammatical errors. - Vital Signs Vital signs: Temp Pulse Resp BP Pulse Ox 98.2 F 90 22 H 154/101 H 95 03/30/19 00:57 03/30/19 00:57 03/30/19 00:57 03/30/19 00:57 03/30/19 00:57 Discharge - Discharge Clinical Impression: Wheezing Asthma Qualifiers: Asthma severity: unspecified severity Asthma persistence: intermittent Asthma complication type: with acute exacerbation Qualified Code(s): J45.21 - Mild intermittent asthma with (acute) exacerbation Condition: Good Disposition: HOME, SELF-CARE Additional Instructions: ASTHMA: You have been diagnosed as having asthma. This is a condition where there is episodic tightness in the bronchial tubes. Allergies, infections, and polluted or cold air may be contributing factors. Emergency treatment of a severe asthma attack may include adrenaline shots, or bronchodilator aerosol. You may feel lightheaded, have a decreased exercise tolerance and a rapid pulse for an hour or two. Rest and get plenty of fluids. Home treatment of asthma requires bronchodilator drugs. These can be administered by injection, inhalation, or by mouth. Antibiotics and corticosteroids may be required for some patients. You should avoid chemical fumes, dusts, pollens, and exercising in very cold or dry air. If you smoke, stop!! If you develop a fever, increased wheezing, chest pain, or severe shortness of breath, you should contact the doctor immediately. INHALED BRONCHODILATORS: You have received treatment(s) of and/or prescription for an inhaled bronchodilator -- a medication which stimulates the airways in the lung to dilate. This improves the flow of air in asthma, bronchitis, and emphysema. These medicines have some similarity to adrenaline, and can cause similar side effects: shakiness, racing heart, and a sense of nervousness. These side effects decrease with time. Contact your doctor if these side effects are severe. Do not over-use the medicine. Too-frequent use of the inhaler may make it ineffective. Call your doctor if the inhaler is not controlling your symptoms at the prescribed doses. SMOKING: If you smoke, you should stop smoking. The tar and chemicals in cigarette smoke are harmful. Smoking has been shown to cause: emphysema chronic bronchitis lung cancer mouth and throat cancer stomach and pancreas cancer premature aging defects In addition, smoking increases ear and lung infections in children of smokers. FOLLOW-UP CARE: If you have been referred to a physician for follow-up care, call the physicians office for an appointment as you were instructed or within the next two days. If you experience worsening or a significant change in your symptoms, notify the physician immediately or return to the Emergency Department at any time for re-evaluation. Please use your inhaler as 2 puffs every 2 hours as needed for recurrent wheezing. Please try to cut back on smoking until you eventually quit. Please return to the ER immediately if you have current wheezing despite using inhaler, difficulty breathing, fevers, or feel that you are worsening in any way Referrals: [facility] [Primary Care Provider] - Follow up in 3-5 days
[2019-03-30] MEDS ORDERED: IPRATROPIUM/ALBUTEROL 0.5-2.5 MG/3 ML AMPUL NEB ONE (02:33)
[2019-03-30] MEDS ORDERED: ALBUTEROL SULFATE HFA (90 MCG/PUFF) 8 GM MDI (1 MDI/ER DISP) IH ONE (03:17)
[2019-03-30 03:29] VITALS: BP 135/68
== END 2019-03-30 03:30 | disposition home or self-care (01) ==
LOC: ER 00:56
DX: J45.21 Mild intermittent asthma with (acute) exacerbation (principal); R05 Cough; F17.200 Nicotine dependence, unspecified, uncomplicated; I10 Essential (primary) hypertension; E11.9 Type 2 diabetes mellitus without complications; Z88.6 Allergy status to analgesic agent; Z88.1 Allergy status to other antibiotic agents
CPT/HCPCS: 94640 ×2; 99284; J3490; J7620

== ENCOUNTER 2019-04-02 00:45 | Emergency (ER) | payer SELFPAY ==
[2019-04-02] MEDS ORDERED: PREDNISONE 20 MG TABLET PO ONE (02:01)
[2019-04-02] MEDS ORDERED: IPRATROPIUM/ALBUTEROL 0.5-2.5 MG/3 ML AMPUL NEB ONE (02:01)
--- NOTE | 2019-04-02 02:04 | ER Document Report ---
ED Medical Screen (RME) - General Chief Complaint: Shortness Of Breath Stated Complaint: DIFFICULTY BREATHING Time Seen by Provider: 04/02/19 02:01 Primary Care Provider: CHET MCCARTY,DHARMESH [Primary Care Provider] - Follow up as needed Mode of Arrival: Ambulatory Information source: Patient Notes: 49-year-old female presented to ED for complaint of shortness of breath difficulty breathing cough coughing up a lot of mucus thick sputum. She states she is okay during the daytime but at nighttime the cough and is continuous. She states she was seen a couple days ago given a couple breathing treatments and sent home when she felt much better. She states she is very short of breath tonight and could not lay down so she came back to the emergency room. Patient states she does have a history of asthma as well as diabetes. Vital signs were repeated and charted. I have greeted and performed a rapid initial assessment of this patient. A comprehensive ED assessment and evaluation of the patient, analysis of test results and completion of medical decision making process will be conducted by an additional ED providers. Dictation of this chart was performed using voice recognition software; therefore, there may be some unintended grammatical errors. TRAVEL OUTSIDE OF THE [place] IN LAST 30 DAYS: No - Related Data Allergies/Adverse Reactions: aspirin [Aspirin] Allergy (Verified 09/27/18 16:25) Shortness of Breath sulfamethoxazole [From Bactrim] Allergy (Verified 09/27/18 16:25) trimethoprim [From Bactrim] Allergy (Verified 09/27/18 16:25) Past Medical History - Past Medical History Cardiac Medical History: Reports: Hx Hypercholesterolemia, Hx Hypertension Pulmonary Medical History: Reports: Hx Asthma Endocrine Medical History: Reports: Hx Diabetes Mellitus Type 1, Hx Diabetes Mellitus Type 2 Renal/ Medical History: Denies: Hx Peritoneal Dialysis Psychiatric Medical History: Reports: Hx Depression Traumatic Medical History: Reports: Hx Fractures - LEFT TIBIAL PLATEAU FX in May 2014 Past Surgical History: Reports: Hx Hysterectomy, Hx Oral Surgery - Pt has full dentures - Immunizations Hx Diphtheria, Pertussis, Tetanus Vaccination: Yes Physical Exam - Vital signs Vitals: Temp Pulse Resp BP Pulse Ox 98.2 F 99 20 124/91 H 93 04/02/19 00:52 04/02/19 00:52 04/02/19 00:52 04/02/19 00:52 04/02/19 00:52 Course - Vital Signs Vital signs: Temp Pulse Resp BP Pulse Ox 98.2 F 99 20 124/91 H 93 04/02/19 00:52 04/02/19 00:52 04/02/19 00:52 04/02/19 00:52 04/02/19 00:52 Doctor's Discharge - Discharge Referrals: [facility] [Primary Care Provider] - Follow up as needed
[2019-04-02] MEDS: ALBUTEROL SULFATE 0.083% NEB 2.5 MG/3 ML AMPUL NEB SCH (02:31)
--- NOTE | 2019-04-02 02:42 | RADIOLOGY REPORT (SQ) ---
CLINICAL HISTORY: cough congestion short of breath COMPARISON: None. TECHNIQUE: XR CHEST 2 VIEWS 04/02/2019 2:01 AM CDT FINDINGS: Cardiac silhouette is normal in size. Lungs are clear without consolidation, atelectasis, mass or edema. There is no pleural effusion. There is no pneumothorax. There are no acute osseous findings. IMPRESSION: Clear lungs.
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
[2019-04-02 07:36] VITALS: BP 168/88
--- NOTE | 2019-04-03 11:00 | EKG REPORT ---
SEVERITY:- ABNORMAL ECG - SINUS RHYTHM PROBABLE LEFT ATRIAL ABNORMALITY PROBABLE LEFT VENTRICULAR HYPERTROPHY NONSPECIFIC T ABNORMALITIES, INFERIOR LEADS : Confirmed by: Ty Doshi 03-Apr-2019 10:59:24
== END 2019-04-02 07:30 | disposition home or self-care (01) ==
LOC: ER 00:45
DX: J20.9 Acute bronchitis, unspecified (principal); F17.210 Nicotine dependence, cigarettes, uncomplicated; I10 Essential (primary) hypertension; E78.00 Pure hypercholesterolemia, unspecified; E11.9 Type 2 diabetes mellitus without complications; Z88.6 Allergy status to analgesic agent; Z88.3 Allergy status to other anti-infective agents; Z90.710 Acquired absence of both cervix and uterus
CPT/HCPCS: 93005; 94640 ×2; 99285; 71046; 93010; J7620

== ENCOUNTER 2019-10-21 12:56 | Emergency (ER) | payer SELFPAY | END 2019-10-21 13:55 | disposition left against medical advice (07) | LOC: ER 12:56 | DX: Z53.21 Procedure and treatment not carried out due to patient leaving prior to being seen by health care provider (principal) ==

== ENCOUNTER 2019-10-21 15:08 | Emergency (ER) | payer OTHER ==
[2019-10-21] MEDS ORDERED: NAPROXEN 250 MG TABLET PO ONE (16:48)
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
[2019-10-21 16:57] VITALS: BP 129/68
== END 2019-10-21 17:04 | disposition home or self-care (01) ==
LOC: ER 15:08
DX: M79.18 Myalgia, other site (principal); R51 Headache; V43.02XA Car driver injured in collision with other type car in nontraffic accident, initial encounter; Y92.481 Parking lot as the place of occurrence of the external cause; I10 Essential (primary) hypertension; J45.909 Unspecified asthma, uncomplicated; E11.9 Type 2 diabetes mellitus without complications; F17.210 Nicotine dependence, cigarettes, uncomplicated; Z71.6 Tobacco abuse counseling; Z88.8 Allergy status to other drugs, medicaments and biological substances; Z88.1 Allergy status to other antibiotic agents
CPT/HCPCS: 99283; 99406

== ENCOUNTER 2020-01-10 08:27 | Emergency (ER) | payer OTHER ==
[2020-01-10 08:57] VITALS: BP 159/79
--- NOTE | 2020-01-10 09:45 | ER Document Report ---
HPI - HPI Time Seen by Provider: 01/10/20 09:34 Pain Level: 0 Notes: CHIEF COMPLAINT: Eye redness and discharge HPI: 49-year-old diabetic female who does not consistently take her metformin presenting for eye redness discharge and itching over the last 24 hours. Nadine ent does not check her blood sugars at home. States she did feel slightly dizzy earlier today. Denies chest pain shortness of breath. States she has been getting more frequent yeast infections recently. Denies visual loss. ROS: See HPI - all other systems were reviewed and are otherwise negative Constitutional: no fever Eyes: Positive drainage, no blurred vision ENT: no runny nose, no sore throat Cardiovascular: no chest pain Resp: no SOB, no cough GI: no vomiting, no diarrhea, no abdominal pain : no dysuria Integumentary: no rash Allergy: no hives Musculoskeletal: no extremity pain or swelling Neurological: no numbness/tingling, no weakness MEDICATIONS: I agree with the patient medications as charted by the RN. ALLERGIES: I agree with the allergies as charted by the RN. PAST MEDICAL HISTORY/PAST SURGICAL HISTORY: Reviewed and agree as charted by RN. SOCIAL HISTORY: Reviewed and agree as charted by RN. FAMILY HISTORY: No significant familial comorbid conditions directly related to patient complaint EXAM: Reviewed vital signs as charted by RN. CONSTITUTIONAL: Alert and oriented and responds appropriately to questions. Well-appearing; well-nourished, mild distress secondary to discomfort HEAD: Normocephalic; atraumatic EYES: PERRL; Conjunctivae injected right eye, sclerae non-icteric. No visible foreign body under the upper or lower lids. No visible hyphema. No visible corneal abrasion. There is no periorbital erythema ENT: normal nose; no rhinorrhea; moist mucous membranes; pharynx without lesions noted, no uvula edema or deviation, no tonsillar hypertrophy, phonation normal NECK: Supple without meningismus; non-tender; no cervical lymphadenopathy, no masses CARD: RRR; no murmurs, no clicks, no rubs, no gallops; symmetric distal pulses RESP: Normal chest excursion without splinting or tachypnea; breath sounds clear and equal bilaterally; no wheezes, no rhonchi, no rales, pulse oximetry ABD/GI: Normal bowel sounds; non-distended; soft, non-tender, no rebound, no guarding; no palpable organomegaly or masses. BACK: The back appears normal and is non-tender to palpation, there is no CVA tenderness EXT: Normal ROM in all joints; non-tender to palpation; no cyanosis, no effusions, no edema SKIN: Normal color for age and race; warm; dry; good turgor; no acute lesions noted NEURO: Moves all extremities equally; Motor and sensory function intact PSYCH: The patient's mood and manner are appropriate. Grooming and personal hygiene are appropriate. MDM: 49-year-old female who is an uncontrolled diabetic presenting for probable right eye conjunctivitis. Has no ocular pain suggesting glaucoma. Feels like she is now getting symptoms in the left eye as well. Will place patient on Polytrim. Did check an Accu-Chek on the patient was greater than 440 here I discussed this with the patient at length. She has metformin with her and states she does not want further treatment for the elevated blood glucose but would prefer to take her medication. She will take the metformin twice today given the elevated blood sugar I will refer to medical outpatient follow-up, she states she needs to get another blood glucose machine. We did discuss the risks of not managing her blood sugars and again she declines further treatment in the ER at this time - REPRODUCTIVE Reproductive: DENIES: : Past Medical History - Social History Smoking Status: Never Smoker Family History: CAD, CVA, DM Patient has suicidal ideation: No Patient has homicidal ideation: No - Past Medical History Cardiac Medical History: Reports: Hx Hypercholesterolemia, Hx Hypertension Pulmonary Medical History: Reports: Hx Asthma Endocrine Medical History: Reports: Hx Diabetes Mellitus Type 2 Renal/ Medical History: Denies: Hx Peritoneal Dialysis Psychiatric Medical History: Reports: Hx Depression Traumatic Medical History: Reports: Hx Fractures - LEFT TIBIAL PLATEAU FX in May 2014 Past Surgical History: Reports: Hx Hysterectomy, Hx Oral Surgery - Pt has full dentures - Immunizations Hx Diphtheria, Pertussis, Tetanus Vaccination: Yes Hx Pneumococcal Vaccination: 09/13/14 Vertical Provider Document - INFECTION CONTROL TRAVEL OUTSIDE OF THE [place] IN LAST 30 DAYS: No Course - Vital Signs Vital signs: Temp Pulse Resp BP Pulse Ox 98.4 F 96 18 159/79 H 94 01/10/20 08:55 01/10/20 08:55 01/10/20 08:55 01/10/20 08:55 01/10/20 08:55 Discharge - Discharge Clinical Impression: Hyperglycemia Conjunctivitis Qualifiers: Conjunctivitis type: acute Acute conjunctivitis type: unspecified Laterality: right Qualified Code(s): H10.31 - Unspecified acute conjunctivitis, right eye Condition: Stable Disposition: HOME, SELF-CARE Additional Instructions: Take your metformin twice today given the elevated blood sugars. Make sure you are taking the metformin at least once a day every day. It is imperative that you are able to check your blood sugars at home you need to follow-up with a medical provider to obtain a blood glucose monitor. You may also go to the health department for further evaluation and management of your diabetes. If you have any worsening symptoms please return for reevaluation as discussed Prescriptions: Polymyxin B Sulf/Trimethoprim [Polytrim Eye Drops] 1 drop OD Q3H #10 ml Referrals: [facility] [Primary Care Provider] - Follow up as needed FELY BARBER MD [ACTIVE STAFF] - Follow up as needed
== END 2020-01-10 09:58 | disposition home or self-care (01) ==
LOC: ER 08:27
DX: H10.31 Unspecified acute conjunctivitis, right eye (principal); E11.9 Type 2 diabetes mellitus without complications; R42 Dizziness and giddiness; E78.00 Pure hypercholesterolemia, unspecified; I10 Essential (primary) hypertension; Z90.710 Acquired absence of both cervix and uterus
CPT/HCPCS: 82962; 99283

== ENCOUNTER 2020-06-02 08:21 | Emergency (ER) | payer SELFPAY ==
[2020-06-02] MEDS ORDERED: NORMAL SALINE 1000 ML 1,000 ML IV ONE (09:03)
[2020-06-02] MEDS ORDERED: METOCLOPRAMIDE HCL INJ/PF 10 MG/2 ML SDV IV ONE (09:04)
--- NOTE | 2020-06-02 09:06 | ER Document Report ---
ED GI/ - General Chief Complaint: Nausea/Vomiting Stated Complaint: SHORT OF BREATH,VOMITING Time Seen by Provider: 06/02/20 08:36 Primary Care Provider: [facility] [Provider Group] - Follow up in 1 week Notes: Patient is a 50-year-old female who presents the emergency department with a chief complaint of nausea and vomiting. Patient states that she started to have her symptoms yesterday. She ended up vomiting last night and continued to vomit. Patient has a past medical history of COPD, asthma, and continues to smoke. Denies any chest pain, shortness of breath, or difficulty breath. She has a history of HTN and has been out of her blood pressure medications. TRAVEL OUTSIDE OF THE [place] IN LAST 30 DAYS: No - Related Data Allergies/Adverse Reactions: aspirin [Aspirin] Allergy (Verified 06/02/20 08:25) Shortness of Breath sulfamethoxazole [From Bactrim] Allergy (Verified 06/02/20 08:25) trimethoprim [From Bactrim] Allergy (Verified 06/02/20 08:25) Past Medical History - General Information source: Patient - Social History Smoking Status: Current Every Day Smoker Family History: CAD, CVA, DM - Past Medical History Cardiac Medical History: Reports: Hx Hypercholesterolemia, Hx Hypertension Pulmonary Medical History: Reports: Hx Asthma Endocrine Medical History: Reports: Hx Diabetes Mellitus Type 2 Renal/ Medical History: Denies: Hx Peritoneal Dialysis Psychiatric Medical History: Reports: Hx Depression Traumatic Medical History: Reports: Hx Fractures - LEFT TIBIAL PLATEAU FX in May 2014 Past Surgical History: Reports: Hx Hysterectomy, Hx Oral Surgery - Pt has full dentures - Immunizations Hx Diphtheria, Pertussis, Tetanus Vaccination: Yes Hx Pneumococcal Vaccination: 09/13/14 Review of Systems - Review of Systems Notes: REVIEW OF SYSTEMS: CONSTITUTIONAL : Denies recent illness. Denies recent unintentional weight loss. Denies fever, chills, or sweats. EENT: Denies eye, ear, throat, or mouth pain, discharge, or symptoms. Denies nasal or sinus congestion. CARDIOVASCULAR: Denies chest pain. RESPIRATORY: Denies shortness of breath, cough, congestion, difficulty breathing, or wheezing. GASTROINTESTINAL: See HPI. GENITOURINARY: Denies difficulty urinating, burning, blood in urine, urgency or frequency. MUSCULOSKELETAL: Denies neck and back pain. Denies joint pain or swelling. SKIN: Denies rash, itchiness, or lesions HEMATOLOGIC : Denies easy bruising or bleeding. LYMPHATIC: Denies swollen, painful, enlarged glands. NEUROLOGICAL: Denies no numbness or tingling denies weakness. Denies headache. Denies altered mental status. Denies alteration in speech. PSYCHIATRIC: Denies stress, anxiety, alteration in sleep patterns, or depression. All other systems reviewed and negative. Physical Exam - Vital signs Vitals: Temp Pulse Resp BP Pulse Ox 98.4 F 99 20 190/108 H 95 06/02/20 08:46 06/02/20 08:46 06/02/20 08:46 06/02/20 08:46 06/02/20 08:46 - Notes Notes: PHYSICAL EXAMINATION: GENERAL: Appears well, healthy, well-nourished, no acute distress. HEAD: Normocephalic, atraumatic. EYES: PERRL, conjunctiva normal, all extraocular movements intact, sclera nonicteric ENT: Moist mucous membranes. NECK: Supple, no noticeable swelling, redness, rash. Normal range of motion. LUNGS: Equal breath sounds bilaterally and clear to auscultation. No wheezes rales or rhonchi. CARDIOVASCULAR: S1-S2, regular rate, regular rhythm. Radial pulses 2+, normal. ABDOMEN: Normoactive bowel sounds. Soft, nontender, no guarding, no rebound tenderness, and no masses palpated. EXTREMITIES: Normal strength and range of motion, no pitting or edema. No cyanosis. NEUROLOGICAL: Moves all extremities upon command. Strength 5/5 in all extremities. PSYCH: Normal mood, normal affect. SKIN: Warm, dry. No rash, lesions, ulcerations noted. Normal skin turgor. Course - Re-evaluation Re-evalutation: 06/02/20 13:45 Hematology is unremarkable. Chemistries show sodium of 131.6 and a chloride of 92. Patient received IV fluids. Patient's glucose was 333. Her lipase is 730. This is consistent with pancreatitis. LFTs are unremarkable. Patient states that she still feels a little tender in her abdomen. We will give her a dose of Toradol. Blood pressure has improved with no intervention. Follow-up precauti ons were given. Verbal discharge instructions were given to the patient. They verbalized understanding. They are stable for discharge. - Vital Signs Vital signs: Temp Pulse Resp BP Pulse Ox 98.3 F 18 L 18 142/78 H 98 06/02/20 13:42 06/02/20 13:42 06/02/20 13:42 06/02/20 13:42 06/02/20 13:42 - Laboratory Result Diagrams: 06/02/20 09:35 06/02/20 09:35 Laboratory results interpreted by me: 06/02/20 06/02/20 06/02/20 09:35 09:35 09:35 RBC 6.16 H MCV 71 L MCH 23.1 L RDW 14.1 H Lymph % (Auto) 11.6 L Seg Neutrophils % 84.0 H Sodium 131.6 L Chloride 92 L BUN 22 H Glucose 333 H Alkaline Phosphatase 132 H Total Protein 8.8 H Lipase 730.6 H Urine Protein Urine Glucose (UA) Urine Ketones Urine Blood 06/02/20 11:40 RBC MCV MCH RDW Lymph % (Auto) Seg Neutrophils % Sodium Chloride BUN Glucose Alkaline Phosphatase Total Protein Lipase Urine Protein 100 H Urine Glucose (UA) >=500 H Urine Ketones 80 H Urine Blood SMALL H Discharge - Discharge Clinical Impression: Pancreatitis Qualifiers: Chronicity: acute Pancreatitis type: unspecified pancreatitis type Acute pancreatitis complication: unspecified Qualified Code(s): K85.90 - Acute panc reatitis without necrosis or infection, unspecified Condition: Stable Disposition: HOME, SELF-CARE Instructions: COVID-19 Guidance for Persons Under Investigation Additional Instructions: Pancreatitis Pancreatitis is an inflammation of the pancreas, an organ at the back of your abdomen. The pancreas produces insulin and enzymes that digest your food. Pancreatitis can be caused by gallstones in the bile duct, by alcohol or viruses, or by excess fat or calcium in the blood stream. Occasionally, pancreatitis occurs when a stomach ulcer saez through into the pancreas. We try to find the cause of pancreatitis, but some tests can't be done until the pancreas heals. The usual symptoms of pancreatitis are pain in the pit of the stomach that goes straight through to the back, vomiting, and low-grade fever. Severe cases require hospital admission, but many patients with mild pancreatitis do well at home. You will probably need medicine for pain and for vomiting. Sometimes we prescribe medicine to decrease stomach acid secretion and to decrease flow of pancreatic juices. Start with a diet of clear liquids (soda pop, juices). When the pain is decreasing, you can add some simple starches (potato, toast, applesauce). Avoid proteins and fats until you are completely painfree. When you're better, your doctor may suggest treatment to prevent future pancreatitis (such as gallbladder removal). Avoid alcohol forever. Get immediate treatment for any future episodes. Contact your doctor at once or return here if you have increasing pain, shortness of breath, general swelling, increasing size of the abdomen, continued vomiting, muscle spasms, or other new symptoms. You are also being tested for COVID-19. Please self quarantine until your results are back. If they are positive, the health department will call you. If they are positive, you need to stay in quarantine for 2 weeks. Make sure you wash your hands frequently. Follow-up with your primary care provider in regards to this visit. Prescriptions: Metoclopramide HCl [Reglan 10 mg Tablet] 1 - 2 tab PO ASDIR PRN #25 tablet PRN Reason: Ketorolac Tromethamine [Toradol 10 mg Tablet] 10 mg PO Q8HP PRN #14 tablet PRN Reason: Forms: Return to Work Referrals: [facility] [Provider Group] - Follow up in 1 week
[2020-06-02 10:02] LABS: ABSOLUTE BASOPHILS # (AUTO) 0.1 10^3/uL (0.0-0.2); ABSOLUTE LYMPHOCYTES (AUTO) 0.8 10^3/uL (0.5-4.7); ABSOLUTE MONOCYTES (AUTO) 0.2 10^3/uL (0.1-1.4); BASOPHILS % (AUTO) 0.9 % (0-2); HEMATOCRIT 43.8 % (36.0-47.0); HEMOGLOBIN 14.2 g/dL (12.0-15.5); LYMPHOCYTES % (AUTO) 11.6 % (13-45); MEAN CORPUSCULAR HEMOGLOBIN 23.1 pg (27.0-33.4); MEAN CORPUSCULAR HGB CONC 32.5 g/dL (32.0-36.0); MEAN CORPUSCULAR VOLUME 71 fl (80-97); MONOCYTES % (AUTO) 3.5 % (3-13); PLATELET COUNT 285 10^3/uL (150-450); RED BLOOD COUNT 6.16 10^6/uL (3.72-5.28); RED CELL DISTRIBUTION WIDTH 14.1 % (11.5-14.0); TOTAL CELLS COUNTED % (AUTO) 100 %; WHITE BLOOD COUNT 7.1 10^3/uL (4.0-10.5)
[2020-06-02 10:25] LABS: ALBUMIN 4.4 g/dL (3.5-5.0); ALKALINE PHOSPHATASE 132 U/L (38-126); ANION GAP 15 (5-19); ASPARTATE AMINO TRANSFERASE 23 U/L (14-36); BILIRUBIN,DIRECT 0.2 mg/dL (0.0-0.4); BILIRUBIN,TOTAL 0.7 mg/dL (0.2-1.3); BLOOD UREA NITROGEN 22 mg/dL (7-20); CALCIUM 9.6 mg/dL (8.4-10.2); CARBON DIOXIDE 25 mmol/L (22-30); CHLORIDE 92 mmol/L (98-107); GLUCOSE 333 mg/dL (75-110); POTASSIUM 4.6 mmol/L (3.6-5.0); TOTAL PROTEIN 8.8 g/dL (6.3-8.2)
[2020-06-02 12:59] LABS: APPEARANCE,URINE SLIGHTLY-CLOUDY; BILIRUBIN,URINE NEGATIVE (NEGATIVE); COLOR,URINE YELLOW; GLUCOSE, URINE >=500 mg/dL (NEGATIVE); KETONES,URINE 80 mg/dL (NEGATIVE); PROTEIN,URINE 100 mg/dL (NEGATIVE); URINE SPECIFIC GRAVITY 1.021; UROBILINOGEN,URINE NEGATIVE mg/dL (<2.0)
[2020-06-02] MEDS ORDERED: KETOROLAC TROMETHAMINE INJ/PF 30 MG/1 ML SDV IV ONE (13:28)
[2020-06-02 13:43] VITALS: BP 142/78
== END 2020-06-02 13:42 | disposition home or self-care (01) ==
LOC: ER 08:21
DX: K85.90 Acute pancreatitis without necrosis or infection, unspecified (principal); R11.2 Nausea with vomiting, unspecified; R06.02 Shortness of breath; F17.200 Nicotine dependence, unspecified, uncomplicated; E78.00 Pure hypercholesterolemia, unspecified; I10 Essential (primary) hypertension; E11.9 Type 2 diabetes mellitus without complications
CPT/HCPCS: 99284; 96361; 96374; 96375; 36415; 87086; 83690; 85025; 80053; 81001; J1885; J2765; J7030; 87088

== ENCOUNTER 2020-06-03 15:16 | Emergency (ER) | payer SELFPAY ==
--- NOTE | 2020-06-03 16:05 | ER Document Report ---
ED General - General Stated Complaint: CHEST PAIN Time Seen by Provider: 06/03/20 16:02 Mode of Arrival: Ambulatory Information source: Patient Notes: yesterday 03 June [address] Patient is a 50-year-old female who presents the emergency department with a chief complaint of nausea and vomiting. Patient states that she started to have her symptoms yesterday. She ended up vomiting last night and continued to vomit. Patient has a past medical history of COPD, asthma, and continues to smoke. Denies any chest pain, shortness of breath, or difficulty breath. She has a history of HTN and has been out of her blood pressure medications. TRAVEL OUTSIDE OF THE [place] IN LAST 30 DAYS: No Notes: PHYSICAL EXAMINATION: GENERAL: Appears well, healthy, well-nourished, no acute distress. HEAD: Normocephalic, atraumatic. EYES: PERRL, conjunctiva normal, all extraocular movements intact, sclera nonicteric ENT: Moist mucous membranes. NECK: Supple, no noticeable swelling, redness, rash. Normal range of motion. LUNGS: Equal breath sounds bilaterally and clear to auscultation. No wheezes rales or rhonchi. CARDIOVASCULAR: S1-S2, regular rate, regular rhythm. Radial pulses 2+, normal. ABDOMEN: Normoactive bowel sounds. Soft, nontender, no guarding, no rebound tenderness, and no masses palpated. EXTREMITIES: Normal strength and range of motion, no pitting or edema. No cyanosis. NEUROLOGICAL: Moves all extremities upon command. Strength 5/5 in all extremities. PSYCH: Normal mood, normal affect. SKIN: Warm, dry. No rash, lesions, ulcerations noted. Normal skin turgor. Course - Re-evaluation Re-evalutation: 06/02/20 13:45 Hematology is unremarkable. Chemistries show sodium of 131.6 and a chloride of 92. Patient received IV fluids. Patient's glucose was 333. Her lipase is 730. This is consistent with pancreatitis. LFTs are unremarkable. Patient states that she still feels a little tender in her abdomen. We will give her a dose of Toradol. Blood pressure has improved with no intervention. Follow-up precautions were given. Verbal discharge instructions were given to the patient. They verbalized understanding. They are stable for discharge. - Related Data Allergies/Adverse Reactions: aspirin [Aspirin] Allergy (Verified 06/02/20 08:25) Shortness of Breath sulfamethoxazole [From Bactrim] Allergy (Verified 06/02/20 08:25) trimethoprim [From Bactrim] Allergy (Verified 06/02/20 08:25) 06/03/20 15:56 - ED Nursing Note by MAVIS BELLA Acct Num: [id number] : 1970 Patient Age: 50 pt. reprots to the ED via pOV with C/O chest pain. center heaviness. Pt. states she feels SOB, hx of HTN. EKG shows sinus tach. Pt. dx other cardiac HX. Pt. alert and oriented x4. respirations even and unlabored. my notes 50-year-old black female arrives with chief complaint of diffuse myalgias. She was scheduled to get a coronavirus yesterday but unfortunately was not done and therefore will be done today. Patient reports she has been vomiting and this is consistent with her pancreatitis. TRAVEL OUTSIDE OF THE [place] IN LAST 30 DAYS: No - Related Data Allergies/Adverse Reactions: aspirin [Aspirin] Allergy (Verified 06/03/20 15:57) Shortness of Breath sulfamethoxazole [From Bactrim] Allergy (Verified 06/03/20 15:57) trimethoprim [From Bactrim] Allergy (Verified 06/03/20 15:57) Home Medications: metformin Past Medical History - Social History Smoking Status: Current Every Day Smoker Frequency of alcohol use: Social Family History: CAD, CVA, DM Patient has homicidal ideation: No - Past Medical History Cardiac Medical History: Reports: Hx Hypercholesterolemia, Hx Hypertension Pulmonary Medical History: Reports: Hx Asthma, Hx Bronchitis Endocrine Medical History: Reports: Hx Diabetes Mellitus Type 2 Renal/ Medical History: Denies: Hx Peritoneal Dialysis Psychiatric Medical History: Reports: Hx Depression Traumatic Medical History: Reports: Hx Fractures - LEFT TIBIAL PLATEAU FX in May 2014 Past Surgical History: Reports: Hx Hysterectomy, Hx Oral Surgery - Pt has full dentures - Immunizations Hx Diphtheria, Pertussis, Tetanus Vaccination: Yes Hx Pneumococcal Vaccination: 09/13/14 Physical Exam - Vital signs Vitals: Temp Pulse Resp BP Pulse Ox 99.0 F 102 H 22 H 149/103 H 98 06/03/20 15:29 06/03/20 15:29 06/03/20 15:29 06/03/20 15:29 06/03/20 15:29 Course - Vital Signs Vital signs: Temp Pulse Resp BP Pulse Ox 99.0 F 102 H 19 98/69 L 97 06/03/20 15:51 06/03/20 15:51 06/03/20 20:01 06/03/20 20:01 06/03/20 20:01 - Laboratory Result Diagrams: 06/03/20 16:09 06/03/20 16:09 Laboratory results interpreted by me: 06/03/20 06/03/20 16:09 16:09 RBC 6.53 H MCV 70 L MCH 23.7 L Sodium 129.7 L Chloride 90 L BUN 27 H Glucose 249 H Alkaline Phosphatase 151 H Total Protein 9.0 H Critical Care Note - Critical Care Note Comments: I was called to bedside by Jennifer CROUCH because patient's blood pressure dropped to 98 systolic after 10 mg of labetalol IV. Patient was tolerating this well after a few minutes. Patient reports she was given a prescription for lisinopril yesterday Discharge - Discharge Clinical Impression: Medication refill Pancreatitis Qualifiers: Chronicity: chronic Pancreatitis type: unspecified pancreatitis type Qualified Code(s): K86.1 - Other chronic pancreatitis Hypertension Qualifiers: Hypertension type: unspecified Qualified Code(s): I10 - Essential (primary) hypertension Disposition: HOME, SELF-CARE Additional Instructions: Follow-up with personal doctor return to ER as needed take your medicines as directed especially your blood pressure medicine and nausea medicine. Prescriptions: Prochlorperazine Maleate [Compazine 10 mg Tablet] 10 mg PO BID PRN #10 tablet PRN Reason:
[2020-06-03 16:36] LABS: ABSOLUTE LYMPHOCYTES (AUTO) 1.4 10^3/uL (0.5-4.7); ABSOLUTE MONOCYTES (AUTO) 0.4 10^3/uL (0.1-1.4); ABSOLUTE NEUT (AUTO) 4.9 10^3/uL (1.7-8.2); BASOPHILS % (AUTO) 0.5 % (0-2); EOSINOPHILS % (AUTO) 0.1 % (0-6); HEMATOCRIT 45.8 % (36.0-47.0); HEMOGLOBIN 15.5 g/dL (12.0-15.5); LYMPHOCYTES % (AUTO) 20.6 % (13-45); MEAN CORPUSCULAR HEMOGLOBIN 23.7 pg (27.0-33.4); MEAN CORPUSCULAR HGB CONC 33.8 g/dL (32.0-36.0); MEAN CORPUSCULAR VOLUME 70 fl (80-97); MONOCYTES % (AUTO) 6.5 % (3-13); PLATELET COUNT 306 10^3/uL (150-450); RED BLOOD COUNT 6.53 10^6/uL (3.72-5.28); RED CELL DISTRIBUTION WIDTH 13.7 % (11.5-14.0); SEGMENTED NEUTROPHILS % (AUTO) 72.3 % (42-78); TOTAL CELLS COUNTED % (AUTO) 100 %; WHITE BLOOD COUNT 6.7 10^3/uL (4.0-10.5)
[2020-06-03 16:57] LABS: ALBUMIN 4.5 g/dL (3.5-5.0); ALKALINE PHOSPHATASE 151 U/L (38-126); ANION GAP 16 (5-19); ASPARTATE AMINO TRANSFERASE 31 U/L (14-36); BILIRUBIN,DIRECT 0.3 mg/dL (0.0-0.4); BILIRUBIN,TOTAL 1.1 mg/dL (0.2-1.3); BLOOD UREA NITROGEN 27 mg/dL (7-20); CALCIUM 9.9 mg/dL (8.4-10.2); CARBON DIOXIDE 24 mmol/L (22-30); CHLORIDE 90 mmol/L (98-107); CREATINE KINASE 94 U/L (30-135); GLUCOSE 249 mg/dL (75-110); POTASSIUM 4.6 mmol/L (3.6-5.0)
[2020-06-03 17:08] LABS: CREATINE KINASE MB 2.58 ng/mL (<4.55)
--- NOTE | 2020-06-03 17:08 | RADIOLOGY REPORT (SQ) ---
EXAM DESCRIPTION: CHEST SINGLE VIEW IMAGES COMPLETED DATE/TIME: 06/03/2020 4:58 pm REASON FOR STUDY: chest pain COMPARISON: 04/02/2019. EXAM PARAMETERS: NUMBER OF VIEWS: One view. TECHNIQUE: Single frontal radiographic view of the chest acquired. RADIATION DOSE: NA LIMITATIONS: None. FINDINGS: LUNGS AND PLEURA: No opacities, masses or pneumothorax. No pleural effusion. MEDIASTINUM AND HILAR STRUCTURES: No masses. Contour normal. HEART AND VASCULAR STRUCTURES: Heart normal in size. Normal vasculature. BONES: No acute findings. HARDWARE: None in the chest. OTHER: No other significant finding. IMPRESSION: NO ACUTE RADIOGRAPHIC FINDING IN THE CHEST. TECHNICAL DOCUMENTATION: JOB ID: [id number] 2010 [employer]- All Rights Reserved Reading location - IP/workstation name: [email or web address]
[2020-06-03 17:09] LABS: TROPONIN I < 0.012 ng/mL
[2020-06-03] MEDS ORDERED: MORPHINE SULFATE 10 MG/ML INJ IV ONE (18:20)
[2020-06-03] MEDS ORDERED: PROMETHAZINE HCL INJ 25 MG/1 ML VIAL IV ONE (18:20)
[2020-06-03] MEDS ORDERED: CLONIDINE HCL 0.2 MG TABLET PO ONE (18:21)
[2020-06-03] MEDS ORDERED: NORMAL SALINE 1000 ML 1,000 ML IV ONE (19:35)
[2020-06-03] MEDS ORDERED: LABETALOL HCL INJ 20 MG/4 ML DISP.SYRIN IV ONE (19:36)
--- NOTE | 2020-06-03 20:54 | RADIOLOGY REPORT (SQ) ---
EXAM DESCRIPTION: CT HEAD WITHOUT IV CONTRAST COMPLETED DATE/TME: 06/03/2020 19:36 CLINICAL HISTORY: 50 years, Female, vomiting htn COMPARISON: CT from 09/28/2019. TECHNIQUE: Axial images without IV contrast. Images stored on PACS. All CT scanners at this facility use dose modulation, iterative reconstruction, and/or weight based dosing when appropriate to reduce radiation dose to as low as reasonably achievable (ALARA). FINDINGS: Normal size ventricles. No suspicious intra-axial or extra-axial abnormality. Paranasal sinuses, mastoid air cells and bony calvarium are unremarkable. IMPRESSION: Unremarkable noncontrast CT of the head.
[2020-06-03 23:04] VITALS: BP 125/67
--- NOTE | 2020-06-04 09:29 | EKG REPORT ---
SEVERITY:- ABNORMAL ECG - SINUS TACHYCARDIA RIGHT ATRIAL ABNORMALITY PROBABLE LEFT VENTRICULAR HYPERTROPHY PROLONGED QT INTERVAL : Confirmed by: Ty Doshi 04-Jun-2020 09:28:42
== END 2020-06-03 23:03 | disposition home or self-care (01) ==
LOC: ER 15:16
DX: K86.1 Other chronic pancreatitis (principal); I10 Essential (primary) hypertension; Z76.0 Encounter for issue of repeat prescription; R11.2 Nausea with vomiting, unspecified; M79.10 Myalgia, unspecified site; R00.0 Tachycardia, unspecified; J44.9 Chronic obstructive pulmonary disease, unspecified; F17.200 Nicotine dependence, unspecified, uncomplicated; E11.9 Type 2 diabetes mellitus without complications; Z20.828 Contact with and (suspected) exposure to other viral communicable diseases; Z88.8 Allergy status to other drugs, medicaments and biological substances; Z88.1 Allergy status to other antibiotic agents
CPT/HCPCS: 93005; 99284; 96361; 96374; 96375; 36415; 82553; 82550; 85025; 87635; 80053; 84484; 85379; 71045; 70450; 93010; J3490; J2270; J2550; J7030; C9803

== ENCOUNTER 2020-11-04 21:40 | Emergency (ER) | payer SELFPAY ==
--- NOTE | 2020-11-04 21:54 | ER Document Report ---
ED Medical Screen (RME) - General Chief Complaint: Vomiting Stated Complaint: VOMITING/SHORTNESS OF BREATH/ABDOMINAL PAIN Time Seen by Provider: 11/04/20 21:52 Mode of Arrival: Ambulatory Information source: Patient Notes: 50-year-old female presents to ED for complaint of nausea vomiting shortness of breath since yesterday. She states she has vomited many times to be counted. States she is having trouble keeping food or fluids down. She states she is very short of breath. She states she has not been tested for Covid and does not know if she is been around anybody with Covid. The patient was evaluated during the global Covid 19 pandemic, and that diagnosis was suspected/considered upon their initial presentation. Their evaluation, treatment and testing was consistent with current guidelines for patients who present with complaints or symptoms that may be related to Covid 19. I have greeted and performed a rapid initial assessment of this patient. A comprehensive ED assessment and evaluation of the patient, analysis of test results and completion of medical decision making process will be conducted by an additional ED providers. TRAVEL OUTSIDE OF THE [place] IN LAST 30 DAYS: No - Related Data Allergies/Adverse Reactions: aspirin [Aspirin] Allergy (Verified 06/03/20 15:57) Shortness of Breath sulfamethoxazole [From Bactrim] Allergy (Verified 06/03/20 15:57) trimethoprim [From Bactrim] Allergy (Verified 06/03/20 15:57) Past Medical History - Past Medical History Cardiac Medical History: Reports: Hx Hypercholesterolemia, Hx Hypertension Pulmonary Medical History: Reports: Hx Asthma, Hx Bronchitis Endocrine Medical History: Reports: Hx Diabetes Mellitus Type 2 Renal/ Medical History: Denies: Hx Peritoneal Dialysis Psychiatric Medical History: Reports: Hx Depression Traumatic Medical History: Reports: Hx Fractures - LEFT TIBIAL PLATEAU FX in May 2014 Past Surgical History: Reports: Hx Hysterectomy, Hx Oral Surgery - Pt has full dentures - Immunizations Hx Diphtheria, Pertussis, Tetanus Vaccination: Yes Physical Exam - Vital signs Vitals: Temp Pulse Resp BP Pulse Ox 98.4 F 115 H 24 H 177/98 H 95 11/04/20 21:45 11/04/20 21:45 11/04/20 21:45 11/04/20 21:45 11/04/20 21:45 Course - Vital Signs Vital signs: Temp Pulse Resp BP Pulse Ox 98.4 F 115 H 24 H 177/98 H 95 11/04/20 21:45 11/04/20 21:45 11/04/20 21:45 11/04/20 21:45 11/04/20 21:45
[2020-11-04] MEDS ORDERED: NORMAL SALINE 1000 ML 1,000 ML IV ONE (21:57)
[2020-11-04] MEDS ORDERED: ONDANSETRON 4 MG TAB.RAPDIS PO ONE (21:58)
--- NOTE | 2020-11-04 22:34 | RADIOLOGY REPORT (SQ) ---
EXAM DESCRIPTION: CHEST SINGLE VIEW CLINICAL HISTORY: 50 years Female, cough congestion COMPARISON: Single view of the chest June 03, 2020 FINDINGS: Lungs: Lungs are clear. No pneumonia or edema. No pneumothorax or pleural effusion. Mediastinum: Cardiac and mediastinal silhouette are normal. Bones: Osseous structures are normal. IMPRESSION: No acute process. No significant interval change.
[2020-11-04 22:44] LABS: ABSOLUTE BASOPHILS # (AUTO) 0.1 10^3/uL (0.0-0.2); ABSOLUTE EOSINOPHILS # (AUTO) 0.1 10^3/uL (0.0-0.6); ABSOLUTE LYMPHOCYTES (AUTO) 2.9 10^3/uL (0.5-4.7); ABSOLUTE MONOCYTES (AUTO) 0.4 10^3/uL (0.1-1.4); ABSOLUTE NEUT (AUTO) 4.5 10^3/uL (1.7-8.2); BASOPHILS % (AUTO) 1.1 % (0-2); EOSINOPHILS % (AUTO) 0.9 % (0-6); HEMATOCRIT 41.9 % (36.0-47.0); HEMOGLOBIN 13.9 g/dL (12.0-15.5); LYMPHOCYTES % (AUTO) 36.3 % (13-45); MEAN CORPUSCULAR HEMOGLOBIN 23.6 pg (27.0-33.4); MEAN CORPUSCULAR HGB CONC 33.1 g/dL (32.0-36.0); MEAN CORPUSCULAR VOLUME 71 fl (80-97); MONOCYTES % (AUTO) 5.3 % (3-13); PLATELET COUNT 311 10^3/uL (150-450); RED BLOOD COUNT 5.89 10^6/uL (3.72-5.28); RED CELL DISTRIBUTION WIDTH 14.6 % (11.5-14.0); SEGMENTED NEUTROPHILS % (AUTO) 56.4 % (42-78); TOTAL CELLS COUNTED % (AUTO) 100 %
[2020-11-05 00:48] LABS: APPEARANCE,URINE SLIGHTLY-CLOUDY; BILIRUBIN,URINE NEGATIVE (NEGATIVE); COLOR,URINE YELLOW; GLUCOSE, URINE >=500 mg/dL (NEGATIVE); KETONES,URINE TRACE mg/dL (NEGATIVE); LEUKOCYTE ESTERASE,URINE TRACE (NEGATIVE); NITRITE,URINE POSITIVE (NEGATIVE); PROTEIN,URINE >=500 mg/dL (NEGATIVE); URINE SPECIFIC GRAVITY 1.014; UROBILINOGEN,URINE NEGATIVE mg/dL (<2.0)
[2020-11-05 01:05] LABS: ALBUMIN 4.3 g/dL (3.5-5.0); ALKALINE PHOSPHATASE 158 U/L (38-126); ANION GAP 9 (5-19); ASPARTATE AMINO TRANSFERASE 21 U/L (14-36); BILIRUBIN,DIRECT 0.2 mg/dL (0.0-0.4); BILIRUBIN,TOTAL 0.7 mg/dL (0.2-1.3); BLOOD UREA NITROGEN 16 mg/dL (7-20); CARBON DIOXIDE 33 mmol/L (22-30); CHLORIDE 96 mmol/L (98-107); GLUCOSE 222 mg/dL (75-110); POTASSIUM 4.4 mmol/L (3.6-5.0); TOTAL PROTEIN 8.5 g/dL (6.3-8.2)
[2020-11-05 01:09] LABS: A TYPE INFLUENZA AG NEGATIVE (NEGATIVE); B INFLUENZA AG NEGATIVE (NEGATIVE)
--- NOTE | 2020-11-05 01:59 | ER Document Report ---
ED General - General Chief Complaint: Nausea/Vomiting Stated Complaint: VOMITING/SHORTNESS OF BREATH/ABDOMINAL PAIN Time Seen by Provider: 11/04/20 21:52 Mode of Arrival: Ambulatory TRAVEL OUTSIDE OF THE [place] IN LAST 30 DAYS: No - HPI Notes: 50-year-old female presents with nausea and vomiting. States that her symptoms started yesterday. States that all day today she could not keep anything down. She is having some abdominal soreness which she believes is from her muscles as it occurs after vomiting, also feels a burning in her esophagus. No diarrhea. No known Covid exposures. Also reports she believes she might have a urinary tract infection as she feels a pulling sensation when she urinates. - Related Data Allergies/Adverse Reactions: aspirin [Aspirin] Allergy (Verified 11/04/20 22:12) Shortness of Breath sulfamethoxazole [From Bactrim] Allergy (Verified 11/04/20 22:12) trimethoprim [From Bactrim] Allergy (Verified 11/04/20 22:12) Past Medical History - General Information source: Patient - Social History Smoking Status: Current Every Day Smoker Frequency of alcohol use: None Drug Abuse: None Family History: CAD, CVA, DM - Past Medical History Cardiac Medical History: Reports: Hx Hypercholesterolemia, Hx Hypertension Pulmonary Medical History: Reports: Hx Asthma, Hx Bronchitis Endocrine Medical History: Reports: Hx Diabetes Mellitus Type 2 Renal/ Medical History: Denies: Hx Peritoneal Dialysis Psychiatric Medical History: Reports: Hx Depression Traumatic Medical History: Reports: Hx Fractures - LEFT TIBIAL PLATEAU FX in May 2014 Past Surgical History: Reports: Hx Hysterectomy, Hx Oral Surgery - Pt has full dentures - Immunizations Hx Diphtheria, Pertussis, Tetanus Vaccination: Yes Hx Pneumococcal Vaccination: 09/13/14 Review of Systems - Review of Systems Constitutional: denies: Fever EENT: No symptoms reported Cardiovascular: denies: Chest pain Respiratory: denies: Short of breath Gastrointestinal: See HPI Genitourinary: Dysuria Female Genitourinary: No symptoms reported Musculoskeletal: No symptoms reported Skin: No symptoms reported Hematologic/Lymphatic: No symptoms reported Neurological/Psychological: No symptoms reported Physical Exam - Vital signs Vitals: Temp Pulse Resp BP Pulse Ox 98.4 F 115 H 24 H 177/98 H 95 11/04/20 21:45 11/04/20 21:45 11/04/20 21:45 11/04/20 21:45 11/04/20 21:45 - General General appearance: Appears well, Alert In distress: None - HEENT Head: Normocephalic, Atraumatic Eyes: No: Scleral icterus Pupils: PERRL - Respiratory Breath sounds: Normal - Cardiovascular Rhythm: Regular Heart sounds: Normal auscultation - Abdominal Distension: No distension Bowel sounds: Normal Tenderness: Nontender - Extremities General upper extremity: Normal ROM General lower extremity: Normal ROM - Neurological Neuro grossly intact: Yes Cognition: Normal Orientation: AAOx4 - Psychological Associated symptoms: Normal affect - Skin Skin Temperature: Warm Course - Re-evaluation Re-evalutation: 50-year-old female presents with nausea/vomiting for 1 day. Patient is afebrile and hemodynamically stable. Through the triage process patient received Zofran and 1 L of normal saline. She also had labs done which were grossly unremarkable. Had chest x-ray which was negative for consolidation. She also received a Covid test. By the time of my evaluation, patient reports all of her symptoms had resolved and she is wanting to go home. She states that she had tolerated peanut butter and abdon crackers. She is well-appearing on exam, abdomen is soft and without focal area of tenderness. Discussed with patient that it looks like she does have signs of urinary tract infection, sent for culture, will prescribe Keflex. Also included prescriptions for Zofran. Return precautions given, stable at time of discharge. - Vital Signs Vital signs: Temp Pulse Resp BP Pulse Ox 98.8 F 97 16 117/61 98 11/05/20 02:00 11/05/20 02:00 11/05/20 02:00 11/05/20 02:00 11/05/20 02:00 - Laboratory Results Result Diagrams: 11/04/20 22:22 11/05/20 00:25 Laboratory Results Interpreted: 11/04/20 11/04/20 11/05/20 22:00 22:22 00:25 RBC 5.89 H MCV 71 L MCH 23.6 L RDW 14.6 H Chloride 96 L Carbon Dioxide 33 H Est GFR (MDRD) Non-Af 59 L Glucose 222 H POC Glucose 239 H Alkaline Phosphatase 158 H Total Protein 8.5 H Urine Protein Urine Glucose (UA) Urine Ketones Urine Blood Urine Nitrite Ur Leukocyte Esterase 11/05/20 00:25 RBC MCV MCH RDW Chloride Carbon Dioxide Est GFR (MDRD) Non-Af Glucose POC Glucose Alkaline Phosphatase Total Protein Urine Protein >=500 H Urine Glucose (UA) >=500 H Urine Ketones TRACE H Urine Blood SMALL H Urine Nitrite POSITIVE H Ur Leukocyte Esterase TRACE H Critical Laboratory Results Reviewed: No Critical Results - Radiology Results Critical Radiology Results Reviewed: No Critical Results Discharge - Discharge Clinical Impression: Bacterial UTI, Person under investigation for COVID-19 Nausea and vomiting Qualifiers: Vomiting type: unspecified Vomiting Intractability: non-intractable Qualified Code(s): R11.2 - Nausea with vomiting, unspecified Condition: Good Disposition: HOME, SELF-CARE Additional Instructions: Begin course of antibiotics for UTI, you will be called if antibiotics need to be changed based on culture results. You should receive Covid results in about 2 to 3 days. Please quarantine at home until you receive these results. Use Zofran for nausea/vomiting. Return to the emergency department for any concerning worsening symptoms. Prescriptions: Cephalexin Monohydrate [Keflex 500 mg Capsule] 500 mg PO BID 7 Days #14 capsule Ondansetron [Zofran Odt 4 mg Tablet] 1 tab PO Q4H PRN #15 tab.rapdis PRN Reason: For Nausea/Vomiting Forms: Return to Work
[2020-11-05 02:29] VITALS: BP 117/61
== END 2020-11-05 02:10 | disposition home or self-care (01) ==
LOC: ER 21:40
DX: N39.0 Urinary tract infection, site not specified (principal); B96.89 Other specified bacterial agents as the cause of diseases classified elsewhere; R11.2 Nausea with vomiting, unspecified; R30.0 Dysuria; R10.9 Unspecified abdominal pain; I10 Essential (primary) hypertension; J45.909 Unspecified asthma, uncomplicated; E11.9 Type 2 diabetes mellitus without complications; F17.200 Nicotine dependence, unspecified, uncomplicated; Z88.8 Allergy status to other drugs, medicaments and biological substances; Z88.1 Allergy status to other antibiotic agents; Z20.828 Contact with and (suspected) exposure to other viral communicable diseases
CPT/HCPCS: 99284; 96360; 36415; 87070; 87880; 82962; 85025; 87635; 80053; 81001; 87804; 71045; S0119; J7030; C9803